=== PATIENT | female | born 1990 | race Caucasian/White ===

== ENCOUNTER 2021-10-19 19:03 | Emergency (ER) | payer MEDICAID ==
[~2021-10-19] VITALS: Ht 165.1 cm; Wt 63.4 kg
[2021-10-19 20:06] VITALS: BP 132/71
[2021-10-19 21:43] LABS: BACTERIA,URINE FEW /HPF (0-FEW); BILIRUBIN,URINE NEGATIVE (NEG); CLARITY,URINE CLEAR; COLOR,URINE YELLOW; NITRITE,URINE NEGATIVE (NEG); PROTEIN,URINE NEGATIVE (NEG-TRACE); RBC,URINE OCC /HPF (0-2); UROBILINOGEN,URINE 0.2 mg/dL (0.2 mg/dL); WBC,URINE 0 /HPF (0-4)
[2021-10-19] MEDS ORDERED: NAPROXEN 500 MG TABLET PO STA (21:53)
[2021-10-19] MEDS ORDERED: CYCLOBENZAPRINE 10 MG TABLET. PO ONE (22:00)
[2021-10-19] MEDS ORDERED: METH4TAB2 PO (22:30)
[2021-10-19] MEDS ORDERED: NAPR-514 PO (22:30)
[2021-10-19] MEDS ORDERED: CYCL10TA19 PO (22:30)
--- NOTE | 2021-10-19 22:31 | PHYS DOC ---
Past Medical History Past Surgical History: Tonsillectomy Smoking Status: Never Smoker Alcohol Use: None General Adult EDM: Chief Complaint: HIP PAIN HPI: HPI: Patient is a 31 year old female who presents to the ED today complaining of mild intermittent left groin pain, left hip pain, pain radiating to the left lower extremity into the left toes, symptoms have been going on for 2 months. Patient denies any trauma. Denies anything specifically exacerbating or relieving the pain. She states today she got the pain and went on her knees. Denies any loss of bowel/bladder function. Denies any numbness or tingling to bilateral lower extremities. Review of Systems: Review of Systems: Constitutional: Denies fever or chills. [] GI: Denies abdominal pain, nausea, vomiting, bloody stools or diarrhea. [] : Denies dysuria. [] Musculoskeletal: Reports left hip/groin pain radiating to the left lower extremity Integument: Denies rash. [] Neurologic: Denies headache, focal weakness or sensory changes. [] Endocrine: Denies polyuria or polydipsia. [] Lymphatic: Denies swollen glands. [] Psychiatric: Denies depression or anxiety. [] Heart Score: C/O Chest Pain: N/A Risk Factors: Risk Factors: DM, Current or recent (<one month) smoker, HTN, HLP, family history of CAD, obesity. Risk Scores: Score 0 - 3: 2.5% MACE over next 6 weeks - Discharge Home Score 4 - 6: 20.3% MACE over next 6 weeks - Admit for Clinical Observation Score 7 - 10: 72.7% MACE over next 6 weeks - Early Invasive Strategies Current Medications: Current Medications Medications (Trade) Dose Ordered Sig/[facility] Start Time Stop Time Status Last Admin Dose Admin Cyclobenzaprine HCl (Flexeril) 10 mg 1X ONCE 10/19/21 22:00 10/19/21 22:01 DC 10/19/21 22:16 10 MG Naproxen (Naprosyn) 500 mg 1X STAT 10/19/21 21:53 10/19/21 21:55 DC 10/19/21 22:16 500 MG Allergies: Allergies: Allergies Coded Allergies Type Severity Reaction Last Updated Verified No Known Drug Allergies 10/19/21 No Physical Exam: PE: Constitutional: Well developed, well nourished, no acute distress, non-toxic appearance. [] Skin: Warm, dry, no erythema, no rash. [] Back: No tenderness, no CVA tenderness. [] Extremities: No tenderness, no cyanosis, no clubbing, ROM intact, no edema. Negative Homans' sign to the left lower extremity. Neurologic: Alert and oriented X 3, normal motor function, normal sensory function, no focal deficits noted. [] Psychologic: Affect normal, judgement normal, mood normal. [] Current Patient Data: Labs: Laboratory Tests Test 10/19/21 20:10 10/19/21 21:10 Urine Collection Type Unknown Urine Color Yellow Urine Clarity Clear Urine pH 7.0 (<5.0-8.0) Urine Specific [place] 1.010 (1.000-1.030) Urine Protein Negative mg/dL (NEG-TRACE) Urine Glucose (UA) Negative mg/dL (NEG) Urine Ketones (Stick) Negative mg/dL (NEG) Urine Blood Small (NEG) Urine Nitrite Negative (NEG) Urine Bilirubin Negative (NEG) Urine Urobilinogen Dipstick 0.2 mg/dL (0.2 mg/dL) Urine Leukocyte Esterase Negative (NEG) Urine RBC Occ /HPF (0-2) Urine WBC 0 /HPF (0-4) Urine Squamous Epithelial Cells Few /LPF Urine Bacteria Few /HPF (0-FEW) POC Urine HCG, Qualitative Hcg negative (Negative) Vital Signs: Vital Signs Date Time Temp Pulse Resp B/P (MAP) Pulse Ox O2 Delivery O2 Flow Rate FiO2 10/19/21 20:06 98.7 71 18 132/71 (91) 97 Room Air 98.7 EKG: EKG: [] Radiology/Procedures: Radiology/Procedures: [] Course & Med Decision Making: Course & Med Decision Making Pertinent Labs and Imaging studies reviewed. (See chart for details) This a 31-year-old female patient presented to the ED today with left hip pain/g roin pain radiating to the left lower extremity for 2 months. No known injuries. No cauda equina syndrome symptoms. Physical exam is benign. Reassured patient. Discharge to home. Mary Disclaimer: Mary Disclaimer: This electronic medical record was generated, in whole or in part, using a voice recognition dictation system. Departure Departure Impression: Primary Impression: Sciatica of left side Disposition: HOME / SELF CARE / HOMELESS Condition: STABLE Referrals: NO PCP (PCP) follow up in one week Patient Instructions: Sciatica, [id number] Additional Instructions: You were seen for pain suspicious of sciatica. Try to do the exercises attached to your paperwork today. Try to get up and ambulate more. Take the prescribed medications as ordered. Follow-up with your doctor in 1 week Scripts Naproxen (NAPROXEN) 500 Mg Tablet 1 TAB PO BID for pain, #14 TAB 0 Refills Prov: ILSA MORLEY APRN 10/19/21 Methylprednisolone (MEDROL) 4 Mg Tab.ds.pk 1 PKG PO UD, #1 PKG Prov: ILSA MORLEY APRN 10/19/21 Cyclobenzaprine Hcl (CYCLOBENZAPRINE HCL) 10 Mg Tablet 1 TAB PO TID, #30 TAB Prov: ILSA MORLEY APRN 10/19/21 ILSA MORLEY APRN Oct 19, 2021 22:31
== END 2021-10-19 23:34 | disposition home or self-care (01) ==
LOC: ER 19:03
DX: M54.32 Sciatica, left side (principal); R10.32 Left lower quadrant pain; M25.552 Pain in left hip
CPT/HCPCS: 81001; 81025; 99283